=== PATIENT | female | born 1990 | race Caucasian/White ===

== ENCOUNTER 2017-07-27 06:02 | Inpatient (IN) ==
[2017-07-27] MEDS ORDERED: ACETAMINOPHEN 325 MG TABLET PO PRN (06:30)
[2017-07-27] MEDS ORDERED: MEPERIDINE 50 MG/1 ML VIAL IV PRN (06:30)
[2017-07-27] MEDS ORDERED: LACTATED RINGERS 1,000 ML IV SCH (06:30)
[2017-07-27] MEDS ORDERED: ONDANSETRON 4 MG/2 ML VIAL IV PRN (06:30)
[2017-07-27 06:55] LABS: Basophils % 0.2 % (0.0-0.8); Eosinophils # 0.1 10*3/uL (0.0-0.87); Eosinophils % 0.9 % (0.00-10.9); Hematocrit 35.2 VOL% (35.7-47.0); Hemoglobin 11.8 GM/DL (12.0-16.0); Immature Granulocytes Absolute 0.13 #; Lymphocytes # 1.4 10*3/uL (1.4-4.0); Lymphocytes % 11.4 % (21.3-54.2); Mean Corpuscular HGB Conc 33.5 GM/DL (32-36); Mean Corpuscular Hemoglobin 29 PG (27-34); Mean Corpuscular Volume 86.3 FL (87-102); Mean Platelet Volume 11.9 FL (9.6-12.0); Monocytes # 0.7 10*3/uL (0.11-0.8); Monocytes % 5.9 % (1.7-12.7); Neutrophils % 80.6 % (38.7-73.9); Platelet Count 175 T/CUMM (130-400); Red Blood Count 4.08 MC/CUMM (3.8-5.5); Red Cell Distribution Width 18.3 % (9.3-17.3); White Blood Count 12.4 T/CUMM (4-12)
[2017-07-27] MEDS: OXYTOCIN/LR 20 UNIT/1,000 ML BAG IV SCH ×2 (07:05→18:04)
[2017-07-27 07:31] LABS: Albumin 2.7 G/DL (3.4-5.0); Bilirubin,Total 0.6 MG/DL (0.2-1.0); Osmolality,Calculated 269.8 MOS/KG (273-304); Potassium 3.7 MMOL/L (3.5-5.1); Total Protein 7.3 G/DL (6.4-8.3)
[2017-07-27] MEDS ORDERED: AMPICILLIN INJ 2,000 MG in SODIUM CHLORIDE 0.9% 100 ML IV SCH (08:00)
[2017-07-27] MEDS ORDERED: LACTATED RINGERS 1,000 ML IV ONE (08:46)
[2017-07-27] MEDS ORDERED: fentaNYL 2 MCG/ROPIV 0.2% EPID 150 ML EPIDURAL SCH (08:46)
[2017-07-27] MEDS ORDERED: ePHEDrine 50 MG/ML AMP IV PRN (08:46)
[2017-07-27] MEDS ORDERED: diphenhydrAMINE 50 MG/1 ML VIAL IV PRN ×2 (08:46)
[2017-07-27] MEDS ORDERED: hydrOXYzine HCL 25 MG/1 ML VIAL IM PRN (08:46)
[2017-07-27] MEDS ORDERED: CITRIC ACID/SODIUM CITRATE 30 ML UDCUP PO ONE (08:46)
[2017-07-27] MEDS ORDERED: PROMETHAZINE 25 MG/1 ML VIAL IM ONE (08:46)
[2017-07-27] MEDS ORDERED: ONDANSETRON 4 MG/2 ML VIAL IV ONE (08:46)
[2017-07-27] MEDS ORDERED: FAMOTIDINE 20 MG/2 ML VIAL IV ONE (08:46)
[2017-07-27 11:48] LABS: Apearance,Urine CLEAR (Clear); Bilirubin,Urine Negative (Negative); Blood, Urine Moderate mg/dL (Negative); Glucose,Urine (UA) Negative (Negative); Ketones,Urine 20 mg/dL (Negative); Mucus,Urine Occasional /LPF (Occasional); Nitrite,Urine Negative (Negative); Protein,Urine Negative; RBC,Urine 120 /HPF (0-4); Squamous Epithelial Cell,Urine Occasional /HPF (0-10); Urine Color Yellow (Yellow); Urine Specific Gravity 1.011 (1.001-1.035); Urine Urobilinogen < 2.0 EU/DL (0.2-1.0); WBC,Urine 2 /HPF (0-6)
[2017-07-27] MEDS ORDERED: AMPICILLIN INJ 1,000 MG in SODIUM CHLORIDE 0.9% 50 ML IV SCH (12:00)
[2017-07-27] MEDS ORDERED: AMPICILLIN 1,000 MG VIAL ONE (12:12)
[2017-07-27] MEDS ORDERED: miSOPROStol 200 MCG TABLET ONE (14:10)
[2017-07-27] MEDS ORDERED: LIDOCAINE 1% 50 ML VIAL ONE (14:10)
[2017-07-27] MEDS ORDERED: ACETAMINOPHEN/CODEINE 300-30 MG TABLET PO PRN (15:26)
[2017-07-27 15:52] LABS: Cord Arterial Blood HCO3 16.2 MMOL/L
[2017-07-27 15:55] LABS: Cord Venous Blood HCO3 19.9 MMOL/L; Cord Venous Blood PCO2 39.3 MMHG
[2017-07-27] MEDS ORDERED: DIPH/TET/ACEL PERT BOOSTER VACCINE 0.5 ML VIAL IM ONE (18:25)
[2017-07-27] MEDS ORDERED: MEASLES/MUMPS/RUBELLA VACCINE 0.5 ML VIAL SUBCUT ONE (18:25)
[2017-07-27] MEDS ORDERED: BENZOCAINE 20%/MENTHOL 0.5% SPRAY 56 GM CAN TOP PRN (18:25)
[2017-07-27] MEDS ORDERED: LANOLIN 50% CREAM 0.3 OZ TUBE TOP PRN (18:25)
[2017-07-27] MEDS ORDERED: HYDROCORTISONE 2.5% RECTAL CREAM 30 GM TUBE TOP PRN (18:25)
[2017-07-27] MEDS ORDERED: RHO(D) IMMUNE GLOBULIN 300 MCG SYRINGE IM ONE (18:25)
[2017-07-27] MEDS ORDERED: oxyCODONE/ACETAMINOPHEN 5-325 MG TABLET PO PRN ×2 (18:25)
[2017-07-27] MEDS ORDERED: BISACODYL 10 MG SUPP RECTAL PRN (18:25)
[2017-07-27] MEDS ORDERED: WITCH HAZEL PADS 100/JAR TOP PRN (18:25)
[2017-07-27] MEDS: IBUPROFEN 800 MG TABLET PO PRN (19:01)
[2017-07-27] MEDS: DOCUSATE SODIUM 100 MG CAPSULE PO SCH (20:10)
[2017-07-28 10:01] LABS: Basophils % 0.2 % (0.0-0.8); Eosinophils # 0.1 10*3/uL (0.0-0.87); Hematocrit 28.9 VOL% (35.7-47.0); Hemoglobin 9.3 GM/DL (12.0-16.0); Immature Granulocytes % 1.5 %; Immature Granulocytes Absolute 0.21 #; Lymphocytes # 1.3 10*3/uL (1.4-4.0); Lymphocytes % 9.3 % (21.3-54.2); Mean Corpuscular HGB Conc 32.2 GM/DL (32-36); Mean Corpuscular Hemoglobin 29 PG (27-34); Mean Corpuscular Volume 88.9 FL (87-102); Mean Platelet Volume 12.3 FL (9.6-12.0); Monocytes # 0.8 10*3/uL (0.11-0.8); Monocytes % 5.9 % (1.7-12.7); Neutrophils # 11.5 10*3/uL (1.4-7.4); Neutrophils % 82.1 % (38.7-73.9); Platelet Count 141 T/CUMM (130-400); Red Blood Count 3.25 MC/CUMM (3.8-5.5); Red Cell Distribution Width 18.4 % (9.3-17.3)
[2017-07-28] MEDS: DOCUSATE SODIUM 100 MG CAPSULE PO SCH ×2 (11:42→20:06)
[2017-07-28] MEDS: IBUPROFEN 800 MG TABLET PO PRN (11:55)
[2017-07-29] MEDS: FERROUS SULFATE 325 MG TABLET PO SCH ×2 (02:47→09:27)
[2017-07-29 07:37] VITALS: BP 127/77
[2017-07-29] MEDS ORDERED: INFLUENZA VIRUS VACCINE 0.5 ML SYRINGE IM ONE ×2 (08:00→11:00)
[2017-07-29] MEDS: DOCUSATE SODIUM 100 MG CAPSULE PO SCH (09:27)
== END 2017-07-29 11:20 | disposition home or self-care (01) | DRG 989 ==
LOC: N.LDOUT 06:02 → N.LD 06:04 → N.OB 18:23
PROVIDERS: ADMIT Obstetrics & Gynecology; ATTEND Obstetrics & Gynecology

== ENCOUNTER 2019-04-18 05:57 | Inpatient (IN) ==
[2019-04-18] MEDS ORDERED: MEPERIDINE 50 MG/1 ML VIAL IM PRN (06:10)
[2019-04-18] MEDS ORDERED: ONDANSETRON 4 MG/2 ML VIAL IV PRN (06:10)
[2019-04-18] MEDS ORDERED: BUTORPHANOL 2 MG/ML VIAL IV PRN (06:10)
[2019-04-18] MEDS ORDERED: OXYTOCIN/LR 20 UNIT/1,000 ML BAG IV SCH (06:30)
[2019-04-18 06:33] LABS: Basophils % 0.2 % (0.0-0.8); Eosinophils # 0.1 10*3/uL (0.0-0.87); Eosinophils % 0.7 % (0.00-10.9); Hematocrit 33.2 VOL% (35.7-47.0); Hemoglobin 10.3 GM/DL (12.0-16.0); Immature Granulocytes % 0.7 %; Immature Granulocytes Absolute 0.07 #; Lymphocytes # 1.9 10*3/uL (1.4-4.0); Lymphocytes % 17.9 % (21.3-54.2); Mean Corpuscular Volume 84.7 FL (87-102); Mean Platelet Volume 11.7 FL (9.6-12.0); Monocytes % 6.4 % (1.7-12.7); Neutrophils % 74.1 % (38.7-73.9); Platelet Count 162 T/CUMM (130-400); Red Blood Count 3.92 MC/CUMM (3.8-5.5); Red Cell Distribution Width 14.5 % (9.3-17.3); White Blood Count 10.7 T/CUMM (4-12)
[2019-04-18 06:52] LABS: Alanine Aminotransferase 24 U/L (13-56); Albumin 2.7 G/DL (3.4-5.0); Alkaline Phosphatase 108 U/L (45-117); Aspartate Amino Transferase 26 U/L (0-37); Bilirubin,Total < 0.39 MG/DL (0.2-1.0); Blood Urea Nitrogen 6 MG/DL (7-18); Calcium 8.8 MG/DL (8.5-10.1); Glucose 81 MG/DL (74-106); Osmolality,Calculated 273.5 MOS/KG (273-304); Total Protein 7.1 G/DL (6.4-8.3)
[2019-04-18] MEDS: LACTATED RINGERS 1,000 ML IV SCH ×2 (06:56→10:17)
[2019-04-18] MEDS ORDERED: diphenhydrAMINE 50 MG/1 ML VIAL IV PRN (09:02)
[2019-04-18] MEDS ORDERED: ePHEDrine 50 MG/ML AMP IV PRN (09:02)
[2019-04-18] MEDS ORDERED: PROMETHAZINE 25 MG/1 ML VIAL IM PRN (09:02)
[2019-04-18] MEDS ORDERED: FAMOTIDINE 20 MG/2 ML VIAL IV ONE (09:02)
[2019-04-18] MEDS ORDERED: NALOXONE 0.4 MG/ML VIAL IV PRN (09:02)
[2019-04-18] MEDS ORDERED: hydrOXYzine HCL 25 MG/1 ML VIAL IM PRN (09:02)
[2019-04-18] MEDS ORDERED: CITRIC ACID/SODIUM CITRATE 30 ML UDCUP PO ONE (09:02)
[2019-04-18] MEDS ORDERED: fentaNYL 2 MCG/ROPIV 0.2% EPID 100 ML EPIDURAL SCH (10:30)
[2019-04-18] MEDS ORDERED: TRANEXAMIC ACID 1,000 MG/10 ML VIAL ONE (13:47)
[2019-04-18] MEDS ORDERED: OXYTOCIN/LR 20 UNIT/1,000 ML BAG IV ONE ×2 (13:47→18:00)
[2019-04-18] MEDS ORDERED: METHYLERGONOVINE 0.2 MG/1 ML AMP ONE (13:47)
[2019-04-18] MEDS ORDERED: miSOPROStol 200 MCG TABLET ONE (13:47)
[2019-04-18] MEDS ORDERED: CARBOPROST TROMETHAMINE 250 MCG/ML AMP IM ONE (13:48)
[2019-04-18] MEDS ORDERED: LANOLIN 50% CREAM 0.3 OZ TUBE TOP PRN (18:23)
[2019-04-18] MEDS ORDERED: HYDROCORTISONE 2.5% RECTAL CREAM 30 GM TUBE TOP PRN (18:23)
[2019-04-18] MEDS ORDERED: oxyCODONE/ACETAMINOPHEN 5-325 MG TABLET PO PRN ×2 (18:23)
[2019-04-18] MEDS ORDERED: RHO(D) IMMUNE GLOBULIN 300 MCG SYRINGE IM ONE (18:23)
[2019-04-18] MEDS ORDERED: MEASLES/MUMPS/RUBELLA VACCINE 0.5 ML VIAL SUBCUT ONE (18:23)
[2019-04-18] MEDS ORDERED: BENZOCAINE 20%/MENTHOL 0.5% SPRAY 56 GM CAN TOP PRN (18:23)
[2019-04-18] MEDS ORDERED: WITCH HAZEL PADS 100/JAR TOP PRN (18:23)
[2019-04-18] MEDS ORDERED: ACETAMINOPHEN 325 MG TABLET PO PRN (18:23)
[2019-04-18] MEDS ORDERED: BISACODYL 10 MG SUPP RECTAL PRN (18:23)
[2019-04-18] MEDS ORDERED: DIPH/TET/ACEL PERT BOOSTER VACCINE 0.5 ML VIAL IM ONE (18:23)
[2019-04-18 19:47] LABS: Basophils % 0.3 % (0.0-0.8); Eosinophils # 0.1 10*3/uL (0.0-0.87); Eosinophils % 0.3 % (0.00-10.9); Hematocrit 29.8 VOL% (35.7-47.0); Hemoglobin 9.3 GM/DL (12.0-16.0); Immature Granulocytes % 0.7 %; Lymphocytes # 1.4 10*3/uL (1.4-4.0); Lymphocytes % 9.4 % (21.3-54.2); Mean Corpuscular HGB Conc 31.2 GM/DL (32-36); Mean Corpuscular Volume 84.4 FL (87-102); Mean Platelet Volume 11.2 FL (9.6-12.0); Monocytes % 6.5 % (1.7-12.7); Neutrophils % 82.8 % (38.7-73.9); Platelet Count 141 T/CUMM (130-400); Red Blood Count 3.53 MC/CUMM (3.8-5.5); Red Cell Distribution Width 14.4 % (9.3-17.3)
[2019-04-18] MEDS: IBUPROFEN 800 MG TABLET PO PRN (21:09)
[2019-04-18] MEDS: DOCUSATE SODIUM 100 MG CAPSULE PO SCH (21:09)
[2019-04-19] MEDS: IBUPROFEN 800 MG TABLET PO PRN ×2 (04:40→20:23)
[2019-04-19 05:02] LABS: Basophils % 0.2 % (0.0-0.8); Eosinophils # 0.2 10*3/uL (0.0-0.87); Eosinophils % 1.1 % (0.00-10.9); Hematocrit 31.7 VOL% (35.7-47.0); Hemoglobin 9.8 GM/DL (12.0-16.0); Immature Granulocytes % 1.1 %; Immature Granulocytes Absolute 0.14 #; Lymphocytes # 2.1 10*3/uL (1.4-4.0); Lymphocytes % 15.5 % (21.3-54.2); Mean Corpuscular HGB Conc 30.9 GM/DL (32-36); Mean Corpuscular Volume 85.9 FL (87-102); Mean Platelet Volume 11.4 FL (9.6-12.0); Monocytes % 7.5 % (1.7-12.7); Neutrophils % 74.6 % (38.7-73.9); Platelet Count 152 T/CUMM (130-400); Red Blood Count 3.69 MC/CUMM (3.8-5.5); Red Cell Distribution Width 14.5 % (9.3-17.3); White Blood Count 13.3 T/CUMM (4-12)
[2019-04-19] MEDS: DOCUSATE SODIUM 100 MG CAPSULE PO SCH ×2 (09:14→20:23)
[2019-04-20] MEDS: IBUPROFEN 800 MG TABLET PO PRN (04:57)
[2019-04-20 07:27] VITALS: BP 106/68
[2019-04-20] MEDS: DOCUSATE SODIUM 100 MG CAPSULE PO SCH (08:57)
== END 2019-04-20 10:40 | disposition home or self-care (01) | DRG 807 ==
LOC: N.LDOUT 05:57 → N.LD 06:03 → N.OB 18:14
PROVIDERS: ADMIT Obstetrics & Gynecology; ATTEND Obstetrics & Gynecology